=== PATIENT | female | born 1955 | race Caucasian/White ===

== ENCOUNTER 2017-03-25 16:40 | Inpatient (IN) | payer BC, OTHER ==
[2017-03-25] MEDS ORDERED: ONDANSETRON HCL IV 4 MG/2 ML VIAL IVP ONE (17:35)
[2017-03-25] MEDS ORDERED: 0.9 % SODIUM CHLORIDE 1,000 ML BAG IV ONE ×2 (17:41→17:53)
[2017-03-25] MEDS ORDERED: HYDROMORPHONE HCL 1MG/ML **SYRINGE IVP ONE ×2 (17:55→18:50)
--- NOTE | 2017-03-25 17:58 | Emergency Department Record ---
History of Present Illness <Jennifer Lopez - Last Filed: 03/25/17 21:25> - General Source: Patient Mode of Arrival: Ambulatory Limitations: No limitations - History of Present Illness Initial Comments: 61 yo female presents with lower abdominal pain and vomiting that started about 3 hour prior. She has nausea and vomiting. She has had similar pain in the past with SBO on several occasions. She has had a gastric bypass in the past. MD Complaint: Abdominal pain Onset/Timin -: Hour(s) Location: LLQ Radiation: None Migration to: No migration Severity: Severe Quality: Stabbing Consistency: Constant Improves With: Nothing Worsens With: Nothing Associated Symptoms: Nausea, Vomiting - Related Data Patient : No <ELSA VERA - Last Filed: 03/29/17 08:43> - General Chief Complaint: Abdominal Pain Stated Complaint: ACUTE ABDOMINAL PAIN LOWER LT QUAD/ VOMITTING/ Time Seen by Provider: 03/25/17 17:44 - Related Data Allergies Allergy/AdvReac Type Severity Reaction Status Date / Time morphine AdvReac HEADACHE Verified 03/25/17 17:40 Travel Screening - Travel/Exposure Within Last 30 Days Have you traveled within the last 30 days?: No <ELSA VERA - Last Filed: 03/29/17 08:43> Review of Systems Constitutional: Denies: Chills, Fever, Malaise, Weakness Eyes: Denies: Eye discharge ENT: Denies: Congestion, Throat pain Respiratory: Denies: Cough, Dyspnea, Hemoptysis, Stridor, Wheezes Cardiovascular: Denies: Chest pain, Palpitations, Syncope Endocrine: Denies: Fatigue Gastrointestinal: Reports: Abdominal pain, Nausea, Vomiting. Denies: Diarrhea Genitourinary: Denies: Dyspareunia, Dysuria, Urgency Musculoskeletal: Denies: Arthralgia, Back pain Skin: Denies: Bruising, Change in color, Rash Neurological: Denies: Numbness, Weakness Psychiatric: Denies: Anxiety Hematological/Lymphatic: Denies: Blood Clots, Easy bleeding, Easy bruising, Swollen glands <ELSA VERA - Last Filed: 03/29/17 08:43> Past Medical History - SOCIAL HISTORY Smoking Status: Former smoker Alcohol Use: None Drug Use: None - RESPIRATORY Hx Respiratory Disorders: Yes Hx Sleep Apnea: Yes Hx of CPAP: Yes - CARDIOVASCULAR Hx Cardio Disorders: Yes Hx Hypertension: Yes - NEURO Hx Neuro Disorders: No - GI Hx GI Disorders: Yes Hx GI Bleed: Yes Hx Reflux: Yes Comment:: partial small bowel obstruction x3 - Hx Genitourinary Disorders: No - ENDOCRINE Hx Endocrine Disorders: No - MUSCULOSKELETAL Hx Musculoskeletal Disorders: No - PSYCH Hx Psych Problems: No - HEMATOLOGY/ONCOLOGY Hx Hematology/Oncology Disorders: Yes Hx Anemia: Yes <ELSA VERA - Last Filed: 03/29/17 08:43> Family Medical History Any Significant Family History?: Yes Hx Cancer: Father, Grandparents Hx Heart Disease: Father Hx HTN: Father, Mother Hx Stroke: Mother, Grandparents <ELSA VERA - Last Filed: 03/29/17 08:43> Physical Exam - General General Appearance: Alert, Oriented x3, Cooperative, No acute distress Limitations: No limitations - Head Head exam: Normal inspection - Eye Eye exam: Normal appearance, PERRL. negative: Periorbital swelling - ENT ENT exam: Normal exam, Mucous membranes moist Ear exam: Normal external inspection Nasal Exam: Normal inspection Mouth exam: Normal external inspection - Neck Neck exam: Normal inspection, Full ROM. negative: Tenderness - Respiratory Respiratory exam: Normal lung sounds bilaterally. negative: Respiratory distress - Cardiovascular Cardiovascular Exam: Regular rate, Normal rhythm, Normal heart sounds - GI/Abdominal GI/Abdominal exam: Soft, Guarding, Tenderness (left lower is tender to palpation , soft abdomen) - Rectal Rectal exam: Deferred - exam: Deferred - Extremities Extremities exam: Normal inspection, Full ROM, Normal capillary refill. negative: Tenderness - Back Back exam: Reports: Normal inspection, Full ROM. Denies: Muscle spasm, Rash noted, Tenderness - Neurological Neurological exam: Alert, Normal gait, Oriented X3 - Skin Skin exam: Dry, Intact, Normal color, Warm <ELSA VERA - Last Filed: 03/29/17 08:43> Course Vital Signs 03/25/17 03/25/17 17:42 18:42 Temperature 97.5 F L 97.5 F L Pulse Rate 63 Pulse Rate [ 63 Pulse Ox Probe] Respiratory 24 18 Rate Blood Pressure 166/93 Blood Pressure 174/87 [Left Arm] Pulse Ox 98 98 - Reevaluation(s) Reevaluation #1: 03/25/17 18:54 pts nausea is better. her pain is better as well but is still an 8 <Jennifer Lopez L - Last Filed: 03/25/17 21:25> Vital Signs 03/25/17 17:42 Temperature 97.5 F L Pulse Rate 63 Respiratory 24 Rate Blood Pressure 166/93 Pulse Ox 98 <ELSA VERA - Last Filed: 03/29/17 08:43> Medical Decision Making - Lab Data Result diagrams: 03/25/17 17:35 03/25/17 17:35 Lab Results 03/25/17 03/25/17 03/25/17 Range/Units 17:35 17:35 17:35 WBC 13.3 H (4.2-12.2) K/uL RBC 4.52 (3.80-5.40) M/uL Hgb 15.1 (11.6-16.0) gm/dl Hct 43.5 (35.0-47.0) % MCV 96.2 (81-97) fl MCH 33.4 H (27-33) pg MCHC 34.7 (32-36) g/dl RDW 12.7 (11.5-14.5) % Plt Count 287 (130-400) K/uL MPV 10.9 H (7.4-10.4) fl Gran % 79.9 (47-80) % Lymphocytes % 12.7 L (16-45) % Monocytes % 6.8 (0-9) % Eosinophils % 0.4 (0-6) % Basophils % 0.2 (0-6) % PT 9.5 (9.5-12.1) SECONDS INR 0.88 APTT 25.10 (24.5-39.1) SECONDS Sodium 139 (136-145) mmol/L Potassium 3.8 (3.4-4.5) mmol/L Chloride 99 (98-107) mmol/L Carbon Dioxide 19.0 L (22-29) mmol/L Anion Gap 21.0 H (7-16) BUN 30 H (8-23) mg/dL Creatinine 0.7 (0.5-0.9) mg/dL Estimated GFR > 60 mL/min Random Glucose 142 H (74-109) mg/dL Lactic Acid (0.5-2.2) mmol/L Calcium 10.0 (8.8-10.2) mg/dL Total Bilirubin 0.20 (0.2-1.0) mg/dL AST 16 (10.0-35.0) U/L ALT 7 (<33) U/L Alkaline Phosphatase 76 (35-104) U/L Total Protein 7.7 (6.6-8.7) g/dL Albumin 4.5 (4.0-5.0) g/dL Globulin 3.2 (1.4-4.8) gm/dL Albumin/Globulin Ratio 1.4 (1.1-1.8) Lipase 47 (13-60) U/L 03/25/17 Range/Units 17:35 WBC (4.2-12.2) K/uL RBC (3.80-5.40) M/uL Hgb (11.6-16.0) gm/dl Hct (35.0-47.0) % MCV (81-97) fl MCH (27-33) pg MCHC (32-36) g/dl RDW (11.5-14.5) % Plt Count (130-400) K/uL MPV (7.4-10.4) fl Gran % (47-80) % Lymphocytes % (16-45) % Monocytes % (0-9) % Eosinophils % (0-6) % Basophils % (0-6) % PT (9.5-12.1) SECONDS INR APTT (24.5-39.1) SECONDS Sodium (136-145) mmol/L Potassium (3.4-4.5) mmol/L Chloride (98-107) mmol/L Carbon Dioxide (22-29) mmol/L Anion Gap (7-16) BUN (8-23) mg/dL Creatinine (0.5-0.9) mg/dL Estimated GFR mL/min Random Glucose (74-109) mg/dL Lactic Acid 1.7 (0.5-2.2) mmol/L Calcium (8.8-10.2) mg/dL Total Bilirubin (0.2-1.0) mg/dL AST (10.0-35.0) U/L ALT (<33) U/L Alkaline Phosphatase (35-104) U/L Total Protein (6.6-8.7) g/dL Albumin (4.0-5.0) g/dL Globulin (1.4-4.8) gm/dL Albumin/Globulin Ratio (1.1-1.8) Lipase (13-60) U/L <Jennifer Lopez - Last Filed: 03/25/17 21:25> - Lab Data Result diagrams: 03/26/17 06:10 03/25/17 17:35 <ELSA VERA - Last Filed: 03/29/17 08:43> Disposition Disposition: Admit Decision to Admit: Admit from ER Decision to Admit Date: 03/25/17 Decision to Admit Time: 21:25 <Jennifer Lopez - Last Filed: 03/25/17 21:25> <ELSA VERA - Last Filed: 03/29/17 08:43> Clinical Impression: Small bowel obstruction Disposition: Still a Patient at [facility] Condition: (2) Stable Quality - Quality Measures Quality Measures: N/A - Blood Pressure Screening Does Patient Have Any of the Following: Active Dx of HTN Blood Pressure Classification: Hypertensive Reading Systolic Measurement: 166 Diastolic Measurement: 93 Screening for High Blood Pressure: Patient Exclusion, Hx of HTN [G9744] <Jennifer Lopez - Last Filed: 03/25/17 21:25> - Blood Pressure Screening Blood Pressure Classification: Hypertensive Reading Systolic Measurement: 144 Diastolic Measurement: 91 <ELSA VERA - Last Filed: 03/29/17 08:43>
[2017-03-25 18:16] LABS: BASO % 0.2 % (0-6); EOS % 0.4 % (0-6); GRAN % 79.9 % (47-80); HEMATOCRIT 43.5 % (35.0-47.0); HEMOGLOBIN 15.1 gm/dl (11.6-16.0); LYMPH % 12.7 % (16-45); MEAN CELL VOLUME 96.2 fl (81-97); MEAN CORPUSCULAR HEMOGLOBIN 33.4 pg (27-33); MEAN CORPUSCULAR HGB CONC 34.7 g/dl (32-36); MEAN PLATELET VOLUME 10.9 fl (7.4-10.4); MONO % 6.8 % (0-9); PLATELET COUNT 287 K/uL (130-400); RED BLOOD COUNT 4.52 M/uL (3.80-5.40); RED CELL DISTRIBUTION WIDTH 12.7 % (11.5-14.5); WHITE BLOOD COUNT W/O DIFF 13.3 K/uL (4.2-12.2)
[2017-03-25 18:27] LABS: INR 0.88; PARTIAL THROMBOPLASTIN TIME 25.1 SECONDS (24.5-39.1); PROTHROMBIN TIME (PATIENT) 9.5 SECONDS (9.5-12.1)
[2017-03-25 18:33] LABS: ALB/GLOB RATIO 1.4 (1.1-1.8); ALBUMIN 4.5 g/dL (4.0-5.0); ALKALINE PHOSPHATASE 76 U/L (35-104); ALT/SGPT 7 U/L (<33); AST/SGOT 16 U/L (10.0-35.0); BLOOD UREA NITROGEN 30 mg/dL (8-23); CREATININE 0.7 mg/dL (0.5-0.9); EST GLOMERULAR FILTRATION RATE > 60 mL/min; GLUCOSE,RANDOM 142 mg/dL (74-109); LIPASE 47 U/L (13-60); TOTAL PROTEIN 7.7 g/dL (6.6-8.7)
[2017-03-25 20:36] LABS: URINE APPEARANCE CLEAR; URINE BILIRUBIN NEGATIVE (NEGATIVE); URINE BLOOD LARGE (NEGATIVE); URINE COLOR YELLOW; URINE GLUCOSE (UA) NEGATIVE (NEGATIVE); URINE KETONE NEGATIVE (NEGATIVE); URINE LEUKOCYTE ESTERASE NEGATIVE (NEGATIVE); URINE NITRITE NEGATIVE (NEGATIVE); URINE PROTEIN NEGATIVE (NEGATIVE); URINE UROBILINOGEN 0.2 E.U./dL (0.20 - 1.00)
[2017-03-25 20:47] LABS: URINE EPITHELIAL CELLS 0 - 2 (FEW); URINE RBC 0 - 2 (NONE SEEN); URINE WBC 0 - 2 (0-2/hpf)
[2017-03-25 20:48] LABS: URINE BACTERIA NONE SEEN
[2017-03-25] MEDS ORDERED: PROMETHAZINE HCL 12.5 MG in 0.9 % SODIUM CHLORIDE 100ML 100 ML IVPB ONE (20:51)
[2017-03-25] MEDS ORDERED: TEMAZEPAM 15 MG CAPSULE PO PRN (22:07)
[2017-03-25] MEDS ORDERED: HYDROMORPHONE HCL 1MG/ML **SYRINGE IVP PRN (22:07)
[2017-03-25] MEDS: 0.9 % SODIUM CHLORIDE 1000ML 1,000 ML IV PRN (22:13)
[2017-03-26] MEDS: 0.9 % SODIUM CHLORIDE 1000ML 1,000 ML IV PRN (06:15)
[2017-03-26 07:02] LABS: BASO % 0.1 % (0-6); EOS % 0.6 % (0-6); GRAN % 72.6 % (47-80); HEMATOCRIT 37.4 % (35.0-47.0); HEMOGLOBIN 11.9 gm/dl (11.6-16.0); LYMPH % 17.7 % (16-45); MEAN CELL VOLUME 100.3 fl (81-97); MEAN CORPUSCULAR HEMOGLOBIN 31.9 pg (27-33); MEAN CORPUSCULAR HGB CONC 31.8 g/dl (32-36); MEAN PLATELET VOLUME 10.2 fl (7.4-10.4); PLATELET COUNT 232 K/uL (130-400); RED BLOOD COUNT 3.73 M/uL (3.80-5.40); RED CELL DISTRIBUTION WIDTH 12.9 % (11.5-14.5); WHITE BLOOD COUNT W/O DIFF 7.1 K/uL (4.2-12.2)
--- NOTE | 2017-03-26 07:24 | CT SCAN REPORT ---
EXAM: CT OF THE ABDOMEN AND PELVIS WITH CONTRAST HISTORY: ABDOMINAL PAIN. TECHNIQUE: Sequential axial images were obtained from the diaphragms through the ischiorectal fossa after intravenous and oral administration of 100 ml of Omnipaque 300 contrast material. FINDINGS: The visualized lung bases appear normal. The patient is status post gastric bypass surgical change. The liver, gallbladder, pancreas, and spleen appear normal. The adrenal glands and kidneys appear normal. There are mildly distended loops of small bowel in the upper abdomen. There is decompression in the distal small bowel. An earlier partial small bowel obstruction cannot be entirely excluded. The colon appears normal. The urinary bladder appears normal. The uterus and adnexal structures are normal. There is degenerative change of the lumbar spine. IMPRESSION: MINIMALLY DISTENDED LOOPS OF SMALL BOWEL WITH A TRANSITION POINT IN THE RIGHT LOWER QUADRANT. FINDINGS MAY REPRESENT AN EARLIER PARTIAL SMALL BOWEL OBSTRUCTION. FOLLOW-UP IMAGING IS RECOMMENDED. JOB NUMBER: [id number] MTDD
[2017-03-26] MEDS ORDERED: LOSARTAN POTASSIUM 25 MG TABLET PO SCH (10:00)
[2017-03-26] MEDS ORDERED: PANTOPRAZOLE SODIUM 40 MG TABLET PO SCH (10:00)
[2017-03-26] MEDS ORDERED: SERTRALINE HCL 50 MG TABLET PO SCH (10:00)
[2017-03-26] MEDS ORDERED: Non-Formulary MISC (Sertraline Hcl [Zoloft] 100 MG) PO SCH (10:00)
--- NOTE | 2017-03-27 07:27 | RADIOLOGY REPORT ---
EXAM: ABDOMEN, SUPINE AND ERECT VIEWS HISTORY: PAIN. TECHNIQUE: Supine and erect views of the abdomen were obtained. Comparison: Plain films 05/24/14. FINDINGS: The bowel gas pattern is nonspecific. A few nondilated small bowel and large bowel air fluid levels may relate to mild ileus. No free air. IMPRESSION: POSSIBLE MILD ILEUS. JOB NUMBER: [id number] MTDD
== END 2017-03-26 14:00 | disposition home or self-care (01) | DRG 390 ==
LOC: ER 16:40 → MEDSURG 22:00
PROVIDERS: ADMIT Surgery; ATTEND Surgery
DX: K56.609 Unspecified intestinal obstruction, unspecified as to partial versus complete obstruction (principal); Z98.890 Other specified postprocedural states; R11.2 Nausea with vomiting, unspecified
CPT/HCPCS: 74000; 74177; 80053; 81001; 83605; 83690; 85025; 85610; 85730; 94762; 96361; 96374; 96375; 96376; 99285; J1170; J2405; J2550; J7030

== ENCOUNTER 2019-07-15 02:19 | Emergency (ER) | payer BC, OTHER ==
[2019-07-15] MEDS ORDERED: ONDANSETRON HCL IV 4 MG/2 ML VIAL IVP ONE (02:23)
[2019-07-15] MEDS ORDERED: 0.9 % SODIUM CHLORIDE 1,000 ML BAG IV ONE (02:23)
[2019-07-15] MEDS ORDERED: HYDROMORPHONE HCL 2 MG/ML VIAL IVP ONE ×2 (02:25→03:42)
[2019-07-15] MEDS ORDERED: PANTOPRAZOLE SODIUM IV 40 MG VIAL IVP ONE (02:33)
--- NOTE | 2019-07-15 02:33 | Emergency Department Record ---
History of Present Illness - General Chief Complaint: Abdominal Pain Stated Complaint: TWISTED BOWEL Time Seen by Provider: 07/15/19 02:21 Source: Patient Mode of Arrival: Ambulatory Limitations: No limitations - History of Present Illness Initial Comments: 63 yo female presents with abdominal pain and vomiting. She reports she has had a similar history in the past with a small bowel obstruction in the past. She has a past surgical history of gastric bypass and ruptured duodenal ulcer. Her last episode was 2016. She was admitted to [facility] and seen by Dr Sanchez. She has had three admission for conservative care of SBO in the past. Her current s ymptoms started three hours ago with pain and dry heaves. No blood in the vomit or recent bowel movements. She additionally states she has von [place]ands. She has been off her Protonix for two months. Dr Parisi is her PCP. Complaint: Abdominal pain -: Hour(s) (3) Location: Diffuse Radiation: Other (diffuse) Migration to: Other (diffuse) Severity: Severe Quality: Aching, Cramping Consistency: Constant Improves With: Nothing Worsens With: Nothing Context: Other Associated Symptoms: Anorexia - Related Data Patient : No Allergies Allergy/AdvReac Type Severity Reaction Status Date / Time morphine AdvReac HEADACHE Verified 07/15/19 03:50 Review of Systems Constitutional: Denies: Chills, Fever, Malaise, Weakness Eyes: Denies: Eye discharge ENT: Denies: Congestion, Throat pain Respiratory: Denies: Cough, Dyspnea, Hemoptysis, Wheezes Cardiovascular: Denies: Chest pain, Palpitations, Syncope Endocrine: Denies: Fatigue, Polydipsia, Polyuria Gastrointestinal: Reports: Abdominal pain, Nausea, Vomiting. Denies: Constipation, Diarrhea, Hematemesis, Hematochezia, Melena Genitourinary: Denies: Dysuria, Urgency Musculoskeletal: Denies: Arthralgia, Back pain, Myalgia Skin: Denies: Bruising, Change in color, Rash Neurological: Denies: Headache Psychiatric: Denies: Anxiety Hematological/Lymphatic: Denies: Easy bleeding, Easy bruising Past Medical History - SOCIAL HISTORY Smoking Status: Former smoker Drug Use: None - RESPIRATORY Hx Respiratory Disorders: Yes Hx Sleep Apnea: Yes Hx of CPAP: Yes - CARDIOVASCULAR Hx Cardio Disorders: Yes Hx Hypertension: Yes - NEURO Hx Neuro Disorders: No - GI Hx GI Disorders: Yes Hx GI Bleed: Yes Hx Reflux: Yes Comment:: partial small bowel obstruction x3 - Hx Genitourinary Disorders: No - ENDOCRINE Hx Endocrine Disorders: No - MUSCULOSKELETAL Hx Musculoskeletal Disorders: No - PSYCH Hx Psych Problems: No - HEMATOLOGY/ONCOLOGY Hx Hematology/Oncology Disorders: Yes Hx Anemia: Yes Family Medical History Hx Cancer: Father, Grandparents Hx Heart Disease: Father Hx HTN: Father, Mother Hx Stroke: Mother, Grandparents Physical Exam - General General Appearance: Alert, Oriented x3, Cooperative, No acute distress Limitations: No limitations - Head Head exam: Atraumatic, Normal inspection - Eye Eye exam: Normal appearance, PERRL. negative: Conjunctival injection, Scleral icterus - ENT ENT exam: Normal exam Ear exam: Normal external inspection Nasal Exam: Normal inspection Mouth exam: Normal external inspection - Neck Neck exam: Normal inspection - Respiratory Respiratory exam: Normal lung sounds bilaterally. negative: Respiratory distress - Cardiovascular Cardiovascular Exam: Regular rate, Normal rhythm, Normal heart sounds - GI/Abdominal GI/Abdominal exam: Soft, Guarding (mild), Tenderness, Other (The abdomen is soft and not firm, she has some diffuse tenderness, no distension). negative: Normal bowel sounds, Rebound - Rectal Rectal exam: Deferred - exam: Deferred - Extremities Extremities exam: negative: Pedal edema - Back Back exam: Reports: Full ROM - Neurological Neurological exam: Alert, Oriented X3 - Psychiatric Psychiatric exam: Anxious - Skin Skin exam: Dry, Intact, Normal color, Warm Course Vital Signs 07/15/19 02:24 Pulse Rate [ 81 Bilateral] Respiratory 28 H Rate Blood Pressure 174/99 [Left Arm] Pulse Ox 99 - Reevaluation(s) Reevaluation #1: 07/15/19 02:56 The CBC was reviewed and is normal 07/15/19 02:57 The lactic acid is 1.5 The renal function is normal The HCO3 20 and AG 19 07/15/19 03:15 LFTs are normal Lipase is normal 07/15/19 03:20 I was notified by RN that medication error occurred. Pt was given Hydralazine IVP instead of Protonix. Patient will be closely monitored. 07/15/19 03:24 The patient returned from radiology Her pain and nausea are controlled at this time. 07/15/19 03:[address] scan was reviewed. There is a small bowel obstruction with a transition point in the right lower quadrant. Normal large bowel. 07/15/19 03:[address] was reviewed with DR Sanchez of general surgery He recommends transfer to the [facility] for evaluation Dr Darling of the ED accepts the patient for transfer to the ED Medical Decision Making - Lab Data Result diagrams: 07/15/19 02:27 07/15/19 02:27 Disposition Disposition: Transfer Clinical Impression: Small bowel obstruction Abdominal pain Qualifiers: Abdominal location: unspecified location Qualified Code(s): R10.9 - Unspecified abdominal pain Transfer To: [facility] Reason For Transfer: SBO Accepting Physician: Phong Time Discussed w/Accepting Physician: 03:50 Condition: (2) Stable Forms: Patient Portal Access Time of Disposition: 03:51 Quality - Quality Measures Quality Measures: N/A - Blood Pressure Screening Does Patient Have Any of the Following: No Blood Pressure Classification: Pre-Hypertensive BP Reading Systolic Measurement: 132 Diastolic Measurement: 77 Screening for High Blood Pressure: < Pre-Hypertensive BP, F/U Documented > [G8950] Pre-Hypertensive Follow-up Interventions: Referral to alternative/primary care provider.
[2019-07-15 02:39] LABS: ABSOLUTE NEUTROPHIL COUNT 7.19; BASO % 0.4 % (0-6); EOS % 1.5 % (0-6); GRAN % 66.6 % (47-80); HEMATOCRIT 46.7 % (35.0-47.0); HEMOGLOBIN 15.4 gm/dl (11.6-16.0); LYMPH % 24.5 % (16-45); MEAN CELL VOLUME 93.6 fl (81-97); MEAN CORPUSCULAR HEMOGLOBIN 30.9 pg (27-33); MEAN PLATELET VOLUME 10.6 fl (7.4-10.4); PLATELET COUNT 315 K/uL (130-400); RED BLOOD COUNT 4.99 M/uL (3.80-5.40); RED CELL DISTRIBUTION WIDTH 12.4 % (11.5-14.5); WHITE BLOOD COUNT W/O DIFF 10.8 K/uL (4.2-12.2)
[2019-07-15 02:50] LABS: INR 0.9; PARTIAL THROMBOPLASTIN TIME 27.1 SECONDS (24.5-39.1); PROTHROMBIN TIME (PATIENT) 9.4 SECONDS (9.5-12.1)
[2019-07-15 02:51] LABS: BLOOD UREA NITROGEN 21 mg/dL (8-23)
[2019-07-15 02:52] LABS: CREATININE 0.9 mg/dL (0.5-0.9); EST GLOMERULAR FILTRATION RATE > 60 mL/min; LIPASE 32 U/L (13-60); TOTAL PROTEIN 7.5 g/dL (6.6-8.7)
[2019-07-15 02:54] LABS: GLUCOSE,RANDOM 123 mg/dL (74-109)
[2019-07-15 02:57] LABS: ALB/GLOB RATIO 1.5 (1.1-1.8); ALBUMIN 4.5 g/dL (4.0-5.0); ALKALINE PHOSPHATASE 80 U/L (35-104); ALT/SGPT 10 U/L (<33); AST/SGOT 20 U/L (10.0-35.0)
--- NOTE | 2019-07-15 03:28 | CT SCAN REPORT ---
EXAMINATION: CT Abdomen and Pelvis with IV Contrast EXAM DATE: 07/15/2019 3:22 AM TECHNIQUE: CT imaging of the abdomen and pelvis was performed with intravenous contrast. Coronal and sagittal images were reconstructed. IV Contrast: The amount and type of contrast are recorded in the medical record. INDICATION: ab pain, hx of SBO COMPARISON: None ENCOUNTER: Not applicable CT ABDOMEN AND PELVIS FINDINGS: Lung Bases: Included extent of the lung bases are clear. Hepatobiliary: The liver has a normal size with a smooth surface. The hepatic and portal veins appear patent. Pancreas: The pancreas is normal. Spleen: The spleen is not enlarged. Adrenals: The adrenal glands are normal. Kidneys, Ureters, & Bladder: Both kidneys have a normal size and there is no hydronephrosis. Both ur eters have a normal caliber and the urinary bladder is unremarkable. Gastrointestinal: There is a small bowel obstruction with a transition point in the right lower quadr ant. Postop surgical change present. The large bowel is normal. Reproductive Organs: Unremarkable Lymphatic System: There is no adenopathy within the abdomen or pelvis. Vasculature: Normal caliber abdominal aorta. Peritoneum: No free fluid, free air, or inflammation Abdominal Wall & Musculoskeletal: No suspicious bone lesions. IMPRESSION: Small bowel obstruction with transition point in the right lower quadrant. Postop surgical change. Dictated by: Gwendolyn Iverson DO on 07/15/2019 3:25 AM. .
[2019-07-15] MEDS ORDERED: 0.9 % SODIUM CHLORIDE 1000ML 1,000 ML IV ONE (03:32)
== END 2019-07-15 04:35 | disposition short-term general hospital (02) ==
LOC: ER 02:19
DX: K56.609 Unspecified intestinal obstruction, unspecified as to partial versus complete obstruction (principal); R11.10 Vomiting, unspecified; I10 Essential (primary) hypertension; Z87.891 Personal history of nicotine dependence; Z98.84 Bariatric surgery status; D68.0 Von Willebrand disease
CPT/HCPCS: 74177; 80053; 83605; 83690; 85025; 85610; 85730; 96374; 96375; 96376; 99285; C9113; J2405; J7030